=== PATIENT | female | born 1970 | race Caucasian/White ===

== ENCOUNTER 2016-06-22 00:13 | Inpatient (IN) | payer OTHER ==
[~2016-06-22] VITALS: Ht 170.1 cm; Wt 86.2 kg
--- NOTE | ~2016-06-22 | CON ---
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 She had an underlying bicuspid aortic valve, which got infected. She has no coronary artery disease and had aortic valve procedure done about 2 years ago at [facility] and a couple of months ago Dr. Fang had done a stress test on her, which was unremarkable. She has not had any cough, fever, chills or any swelling of the legs and orthopnea or palpitations. She had right shoulder pain that has been there for a couple of months. I saw her in April for similar complaint. The shoulder is very painful. When she moves it, it hurts a lot and she has been miserable. She has not had any anterior chest pain and no other accompanying pain other than little nausea when the pain is severe. She apparently had taken ibuprofen and NSAID before. HOME MEDICATIONS: Included metoprolol, trazodone, lisinopril, alprazolam, gabapentin, Zofran and at times Phenergan. ALLERGIES: SHE IS ALLERGIC TO TORADOL WITH SOMA AND COMPAZINE, IMITREX. PHYSICAL EXAMINATION: GENERAL: Reveals the patient who is pleasant, alert, but she is in pain. She is not anemic. There is no thyromegaly or finger clubbing. VITAL SIGNS: Temperature is 97.8, pulse is 60 regular, blood pressure 170/100 and systolic blood pressure has been high since admission. NECK: JVP is normal. AJR is negative. CARDIAC: Auscultation reveals somewhat loud. The aortic component of the second heart sound and grade early peaking systolic murmur over the aortic area. No edema in the lower extremities. Pedal pulses are palpable. LUNGS: Clear to percussion and auscultation. ABDOMEN: Supple, nontender. EXTREMITIES: Her right shoulder is very tender anteriorly and the bicipital tendon is quite tender as well. The motion of the shoulder joint induces much pain. IMPRESSION: This patient probably has right shoulder capsulitis and I think she also has bicipital tendinitis. I do not suspect any underlying coronary artery disease and a bioprosthetic valve is functioning satisfactorily. My recommendation that the patient be evaluated by an park interpretive specialist or a surgical asst. I thank you on behalf of Dr. Fang for this consult. [place], [place] REPORT OF CONSULTATION NAME: JUSTINO BULL UNIT #: [id number] ROOM: 404 DOCTOR: ESTELA VOSS MD BIRTHDATE: [birth year] ESTELA VOSS MD CM:CONSTR:REPORT OF CONSULTATION 1105 06/24/16 [id number] interface
[~2016-06-22 00:13] MED LIST: 'XANAX1 MG PO; AMBIEN10 MG PO; AMOXICILLIN500 MG PO; ASPIRIN ADULT L81 M1 PO; ATENOLOL50 MG PO; ATIVAN1 MG PO; AUGMENTIN 875875 MG PO; CIPROFLOXACIN500 MG PO; CYMBALTA30 MG PO; D-1000 185 MG-11 TAB PO; DULCOLAX5 MG PO; EES400 MG PO; FIORICET W/CODE1 CA1 PO; GABAPENTIN TAB600 MG PO; KETOROLAC10 MG PO; KLONOPIN1 M1 PO; LIPITOR20 MG PO; LISINOPRIL10 M1 PO; LISINOPRIL2.5 MG PO; LISINOPRIL20 MG PO; Lopressor25 MG PO; NEURONTIN400 MG PO; NORCO 5-325 TA1 EACH PO; ONDANSETRON HYDR4 M1 PO; OXAYDO7.5 MG PO; OXYCONTIN80 M1 PO; PERCOCET 325 MG1 TA2 PO; PERCOCET 325 MG1 TA5 PO; PHENERGAN25 M3 PO; TENORMIN50 MG PO; TRAMADOL HCL50 MG PO; TRAZODONE150 MG PO; ULTRAM50 MG PO; VICODIN 5/500 505 MG PO; VICODIN ES 7501 TA1 PO; VICODIN ES 7501 TAB PO; VICODIN HP 6601 TA1 PO; VICODIN HP 6601 TAB PO; ZOFRAN ODT4 MG SL; ZOFRAN ODT8 MG PO; ZOFRAN4 MG SL; ZOLOFT50 MG PO; [UNRECOGNIZED DRUG - OTHER] PO
[2016-06-22 01:03] LABS: BASO % 0.2 % (0.0-1.0); EOS % 0.2 % (1.0-4.0); HEMATOCRIT 40.3 % (37.0-47.0); HEMOGLOBIN 13.9 g/dl (12.0-16.0); LYMPH # 2.5 10*3/uL (1.3-4.4); LYMPH % 19.2 % (27.0-41.0); MEAN CELL VOLUME 84.7 fl (81.0-99.0); MEAN CORPUSCULAR HGB 29.2 pg (27.0-31.0); MEAN CORPUSCULAR HGB CONC 34.5 g/dl (33.0-37.0); MEAN PLATELET VOLUME 8.8 fl (9.6-12.3); MONO # 0.7 10*3/uL (0.1-1.0); MONO % 5.4 % (3.0-9.0); NEUT # 9.6 10*3/uL (2.3-7.9); NEUT % 74.8 % (47.0-73.0); PLATELET COUNT AUTOMATED 298 10*3/uL (130-400); RED BLOOD COUNT 4.76 10*6/uL (4.10-5.10); RED CELL DISTRI WIDTH 13.4 % (0-14.5); WHITE BLOOD COUNT 12.9 10*3/uL (4.8-10.8)
[2016-06-22 01:20] LABS: ALKALINE PHOSPHATASE 100 U/L (45-117); BILIRUBIN, TOTAL 0.4 mg/dl (0.2-1.0); BUN 7 mg/dl (7-24); CARBON DIOXIDE 25 mmol/L (21-32); CHLORIDE 103 mmol/L (98-107); CKMB 0.6 ng/ml (0.5-3.6); CPK 26 U/L (26-192); EST GLOM FILT AFRICAN AMERICAN > 60 ml/min; GLUCOSE 100 mg/dL (65-99); LDH 208 U/L (84-246); POTASSIUM 3.7 mmol/L (3.5-5.1); SGOT/AST 11 IU/L (3-35); SGPT/ALT 19 U/L (12-78); SODIUM 141 mmol/L (136-145); TROPONIN I < 0.015 ng/ml (<0.045)
[2016-06-22 06:40] LABS: HEMATOCRIT 40.8 % (37.0-47.0); HEMOGLOBIN 13.7 g/dl (12.0-16.0); MEAN CELL VOLUME 85.4 fl (81.0-99.0); MEAN CORPUSCULAR HGB 28.7 pg (27.0-31.0); MEAN CORPUSCULAR HGB CONC 33.6 g/dl (33.0-37.0); MEAN PLATELET VOLUME 8.8 fl (9.6-12.3); PLATELET COUNT AUTOMATED 310 10*3/uL (130-400); RED BLOOD COUNT 4.78 10*6/uL (4.10-5.10); RED CELL DISTRI WIDTH 13.5 % (0-14.5); WHITE BLOOD COUNT 19.1 10*3/uL (4.8-10.8)
[2016-06-22 07:03] LABS: CKMB < 0.5 ng/ml (0.5-3.6); CPK 18 U/L (26-192); TROPONIN I < 0.015 ng/ml (<0.045)
[2016-06-22 07:12] LABS: ALBUMIN 3.7 gm/dl (3.1-4.5); ALKALINE PHOSPHATASE 96 U/L (45-117); BILIRUBIN, TOTAL 0.4 mg/dl (0.2-1.0); BUN 8 mg/dl (7-24); CARBON DIOXIDE 23 mmol/L (21-32); CHLORIDE 105 mmol/L (98-107); EST GLOM FILT AFRICAN AMERICAN > 60 ml/min; GLUCOSE 164 mg/dL (65-99); PHOSPHOROUS 3.5 mg/dL (2.5-4.9); POTASSIUM 3.3 mmol/L (3.5-5.1); SGOT/AST 10 IU/L (3-35); SGPT/ALT 21 U/L (12-78); SODIUM 142 mmol/L (136-145)
[2016-06-22 07:14] LABS: LYMPHOCYTE # 1.1 10*3/uL (1.3-4.4); MONOCYTE # 0.2 10*3/uL (0.1-1.0); NEUTROPHIL # 17.8 10*3/uL (2.3-7.9); NEUTROPHILS 93 % (47-73); PLATELET SUFFICIENCY NORMAL (NORMAL); TOTAL CELLS COUNTED 100 #CELLS
[2016-06-22 12:10] LABS: CKMB 0.7 ng/ml (0.5-3.6)
[2016-06-22 12:11] LABS: CPK 24 U/L (26-192); TROPONIN I < 0.015 ng/ml (<0.045)
[2016-06-22 12:51] LABS: LA>2 REFLEX 2 HR DRAW NOW
[2016-06-22 13:10] LABS: LA>2 RFLX FOLLOW UP AT 2 HRS 2.8 mmol/L (0.4-2.0)
[2016-06-22 15:00] LABS: LA>2 REFLEX 4 HR DRAW NOW
[2016-06-22 18:08] LABS: CKMB 1.7 ng/ml (0.5-3.6); CPK 46 U/L (26-192); TROPONIN I < 0.015 ng/ml (<0.045)
[2016-06-23 07:23] LABS: BASO % 0.1 % (0.0-1.0); HEMATOCRIT 35.4 % (37.0-47.0); IG # 0.2 10*3/uL (0.0-0.1); LYMPH # 2.5 10*3/uL (1.3-4.4); LYMPH % 12.2 % (27.0-41.0); MEAN CELL VOLUME 87.4 fl (81.0-99.0); MEAN CORPUSCULAR HGB 28.9 pg (27.0-31.0); MEAN CORPUSCULAR HGB CONC 33.1 g/dl (33.0-37.0); MEAN PLATELET VOLUME 8.8 fl (9.6-12.3); MONO # 1.3 10*3/uL (0.1-1.0); MONO % 6.6 % (3.0-9.0); NEUT # 16.1 10*3/uL (2.3-7.9); NEUT % 80.4 % (47.0-73.0); PLATELET COUNT AUTOMATED 251 10*3/uL (130-400); RED BLOOD COUNT 4.05 10*6/uL (4.10-5.10); RED CELL DISTRI WIDTH 13.9 % (0-14.5); WHITE BLOOD COUNT 20.1 10*3/uL (4.8-10.8)
[2016-06-23 07:24] LABS: HEMOGLOBIN 11.7 g/dl (12.0-16.0)
[2016-06-23 07:48] LABS: BUN 13 mg/dl (7-24); CARBON DIOXIDE 25 mmol/L (21-32); CHLORIDE 109 mmol/L (98-107); EST GLOM FILT AFRICAN AMERICAN > 60 ml/min; GLUCOSE 118 mg/dL (65-99); SODIUM 143 mmol/L (136-145)
[2016-06-23 07:49] LABS: POTASSIUM 4.3 mmol/L (3.5-5.1)
[2016-06-24 06:15] LABS: BASO % 0.1 % (0.0-1.0); HEMATOCRIT 33.4 % (37.0-47.0); IG # 0.1 10*3/uL (0.0-0.1); LYMPH % 13.4 % (27.0-41.0); MEAN CELL VOLUME 87.9 fl (81.0-99.0); MEAN CORPUSCULAR HGB 28.9 pg (27.0-31.0); MEAN CORPUSCULAR HGB CONC 32.9 g/dl (33.0-37.0); MEAN PLATELET VOLUME 9.5 fl (9.6-12.3); MONO % 6.6 % (3.0-9.0); NEUT # 11.8 10*3/uL (2.3-7.9); NEUT % 79.2 % (47.0-73.0); PLATELET COUNT AUTOMATED 243 10*3/uL (130-400); WHITE BLOOD COUNT 14.9 10*3/uL (4.8-10.8)
[2016-06-24 06:39] LABS: ALBUMIN 3.2 gm/dl (3.1-4.5); ALKALINE PHOSPHATASE 71 U/L (45-117); BILIRUBIN, TOTAL 0.2 mg/dl (0.2-1.0); BUN 14 mg/dl (7-24); CARBON DIOXIDE 26 mmol/L (21-32); CHLORIDE 105 mmol/L (98-107); EST GLOM FILT AFRICAN AMERICAN > 60 ml/min; GLUCOSE 101 mg/dL (65-99); POTASSIUM 3.5 mmol/L (3.5-5.1); SGOT/AST 10 IU/L (3-35); SGPT/ALT 15 U/L (12-78); SODIUM 142 mmol/L (136-145); TOTAL PROTEIN 6.4 gm/dL (6.4-8.2)
[2016-06-24] MEDS ORDERED: NORCO 5-325 TA1 EACH PO (11:19)
[2016-06-24] MEDS ORDERED: LEVAQUIN750 M1 PO (11:19)
== END 2016-06-24 12:26 | disposition home or self-care (01) | DRG 871 ==
LOC: ED 00:13 → EDHOLD 02:46 → 4E 02:46
PROVIDERS: Family Medicine; Hospitalist; Internal Medicine; Physician Assistant
DX: A41.9 Sepsis, unspecified organism (principal); J18.9 Pneumonia, unspecified organism; E44.0 Moderate protein-calorie malnutrition; T78.2XXA Anaphylactic shock, unspecified, initial encounter; I10 Essential (primary) hypertension; R03.0 Elevated blood-pressure reading, without diagnosis of hypertension; F32.9 Major depressive disorder, single episode, unspecified; F41.0 Panic disorder [episodic paroxysmal anxiety]; F41.9 Anxiety disorder, unspecified; E78.5 Hyperlipidemia, unspecified; M75.01 Adhesive capsulitis of right shoulder; M75.20 Bicipital tendinitis, unspecified shoulder; F17.210 Nicotine dependence, cigarettes, uncomplicated; Z95.2 Presence of prosthetic heart valve; Z79.01 Long term (current) use of anticoagulants; Z90.710 Acquired absence of both cervix and uterus; Z88.6 Allergy status to analgesic agent; R65.20 Severe sepsis without septic shock; Z71.6 Tobacco abuse counseling; I25.10 Atherosclerotic heart disease of native coronary artery without angina pectoris; S16.1XXA Strain of muscle, fascia and tendon at neck level, initial encounter; Z68.29 Body mass index [BMI] 29.0-29.9, adult

== ENCOUNTER → 2016-07-11 | Outpatient (CLI) | payer OTHER ==
[~2016-07-11] MED LIST changes: +LEVAQUIN750 M1 PO
== END | disposition home or self-care (01) ==
LOC: RAD 11:03
DX: M25.571 Pain in right ankle and joints of right foot (principal); R07.89 Other chest pain; M54.6 Pain in thoracic spine; M79.609 Pain in unspecified limb

== ENCOUNTER 2016-07-15 11:42 | Emergency (ER) | payer OTHER ==
[2016-07-15] MEDS ORDERED: PREDNISONE10 MG PO (12:03)
[2016-07-15] MEDS ORDERED: 'PARAFON FORTE500 M1 PO (12:03)
[2016-07-15 13:13] VITALS: BP 152/98
== END 2016-07-15 13:18 | disposition home or self-care (01) ==
LOC: ED 11:42
DX: M79.604 Pain in right leg (principal); R03.0 Elevated blood-pressure reading, without diagnosis of hypertension; M48.54XA Collapsed vertebra, not elsewhere classified, thoracic region, initial encounter for fracture; F17.200 Nicotine dependence, unspecified, uncomplicated; F32.9 Major depressive disorder, single episode, unspecified; I10 Essential (primary) hypertension; E78.5 Hyperlipidemia, unspecified; F41.0 Panic disorder [episodic paroxysmal anxiety]; Z79.82 Long term (current) use of aspirin; Z79.899 Other long term (current) drug therapy; Z88.6 Allergy status to analgesic agent; Z88.8 Allergy status to other drugs, medicaments and biological substances